=== PATIENT | female | born 1955 | race Caucasian/White ===

== ENCOUNTER 2025-01-13 14:36 | Emergency (ER) | payer MEDICARE, OTHER, SELFPAY ==
[2025-01-13 14:39] VITALS: BP 190/104
[2025-01-13 16:00] VITALS: BP 176/88
--- NOTE | 2025-01-13 16:04 | ED.GENMED ---
History of Present Illness
General
Chief Complaint: Blood Pressure Problem
Source: patient
Exam Limitations: none
Time Seen by Provider: 01/13/25 15:48
Nursing documentation reviewed up to this point in time: agreed with
History of Present Illness
History of Present Illness:
Patient with history of hypertension, presents to ED secondary to persistently elevated blood pressure over the past 2 weeks, including this afternoon when her blood pressure registered systolic blood pressure greater than 200. Patient denies
headache. Denies chest pain or shortness of breath. Denies nausea or vomiting. Denies dizziness. Patient has had multiple evaluation with her primary care physician, and has had medication adjusted. Despite changes, patient's blood pressure has
been persistently around systolic blood pressure 180s. Of note, patient has had flulike symptoms for the past 1 week, with intermittent cough, which are improving. Denies fever. Denies nausea, vomiting, or diarrhea. There are multiple for
members who has had recent flulike symptoms. In addition, patient has been using decongestants as an outpatient.
Review of Systems
Review of Systems
Allergies reviewed?: Yes
All Other Systems: ROS reviewed and negative except as documented in HPI and ROS
Constitutional: Reports no symptoms; Denies fever or chills
EENT: Reports no symptoms
Respiratory: Reports cough
Cardiac: Reports no symptoms; Denies chest pain
ABD/GI: Reports no symptoms; Denies vomiting or diarrhea
Musculoskeletal: Reports no symptoms
Skin: Reports no symptoms
Neurological: Reports no symptoms
Phy Exam
Physical Exam
Physical Exam:
Physical Exam
General: no apparent distress, not acutely ill. afebrile.
Head: nc/at. eomi
Neck: supple. normal range of motion.
Heart: s1/s2 regular rate and rhythm, no murmur.
Lungs: no acute respiratory distress. clear bilaterally
Abdomen: normal bowel sounds. not tender.
Neuro: alert and oriented x 3. no focal neurological deficits
Skin: no rash
Psychiatric: well kept. interactive and cooperative
Extremities: no edema. no calf tenderness.
Course
Orders/Labs/Results
Orders:
Orders
01/13/25 14:41
EKG [Electrocardiogram (*1)] Urgent
Reason for Study: Hypertension, Benign
01/13/25 14:42
EKG- Treatment ONCE
Vital Signs
Initial and Last Documented VS:
Initial Vital Signs
Temp Pulse Resp BP Pulse Ox
98.4 F 65 18 190/104 99
01/13/25 14:39 01/13/25 14:39 01/13/25 14:39 01/13/25 14:39 01/13/25 14:39
Last Documented Vital Signs
Temp Pulse Resp BP Pulse Ox
98.4 F 59 16 176/88 97
01/13/25 14:39 01/13/25 15:53 01/13/25 16:00 01/13/25 16:00 01/13/25 16:05
MDM/Problems Addressed
MDM/Problems Addressed:
BP: 176/88 at time of discharge. Patient will follow-up with her primary care physician for reevaluation, including potential medication adjustment as an outpatient. Patient will be provided with prescription for Robitussin with codeine secondary
to persistent cough.
*Critical Care Note
Total Time (30-74mins, 75-104mins- exclusive of procedures): Not Applicable
ED Attending Note
-
Portions of this chart may have been created with voice recognition software.� Occasional wrong word or��sound alike� substitutions may have occurred due to the inherent limitations of voice recognition software.
Discharge Plan
Departure
Patient Disposition: Home (Routine Discharge)
Date of Disposition: 01/13/25
Time of Disposition: 16:25
Patient with high blood pressure during this ER visit?: Yes
Condition: Good
Discharge Problem:
Viral illness, Hypertension
Instructions: High Blood Pressure (DC), Upper respiratory infection in adults - Discharge instructions
Prescriptions:
New
codeine-guaifenesin [Guaifenesin AC] 10-100 mg/5 mL liquid
5 ml PO Q8HPRN PRN (Reason: Cough) Qty: 120 0RF
No Action
atorvastatin [Lipitor] 20 MG tablet
20 mg PO DAILY
nadolol 20 MG tablet
20 mg PO DAILY
sertraline 25 MG tablet
25 mg PO DAILY
folic acid 1 MG tablet
1 mg PO DAILY
doxycycline monohydrate [Oracea] 40 MG capsule,IR - delay rel,biphase
40 mg PO DAILY
cholecalciferol (vitamin D3) [Vitamin D3] 2,000 UNIT capsule
2,000 unit PO DAILY
Extra Strength Hair And Nails
5,000 mcg PO DAILY
methotrexate sodium 2.5 MG tablet
7.5 mg PO .EVERY TUESDAY
gabapentin 300 MG capsule
300 mg PO TID
zolpidem 10 MG tablet
10 mg PO HSPRN PRN (Reason: sleep)
lidocaine 1 PATCH adhesive patch,medicated
1 patch topical DAILY
Patient Comments:
up to 3 patches daily
hydrocodone-acetaminophen [[place]] 1 EACH tablet
1 ea PO Q6HPRN PRN (Reason: pain) Qty: 40 0RF
Rx Instructions:
Take 1 tablet four times a day, every 6 hours for pain
lorazepam 1 MG tablet
1 mg PO TIDPRN PRN (Reason: pain/spasms) Qty: 40 0RF
Referrals:
Jb Morataya MD [Family Provider] -
Activity Restrictions/Additional Instructions:
As discussed, please follow-up with your primary care physician for reevaluation. Your prescription has been sent electronically to [facility] pharmacy in [place]
Interventions
Interventions:
*Risk Screen - Suicide Last Done: 01/13/25 14:39
*General Assessment Last Done: 01/13/25 14:39
*Neglect/Abuse Screening Last Done: 01/13/25 16:09
*ED- Fall Risk Assessment Last Done: 01/13/25 16:20
*ED COVID-19 Vaccine History Last Done: 01/13/25 14:39
*Nursing Disposition Last Done: 01/13/25 16:20
ED- Cardiac Assessment Last Done: 01/13/25 16:05
ED- Neurological Assessment Last Done: 01/13/25 16:05
ED- Pulmonary Assessment Last Done: 01/13/25 16:05
Discharge Date and Time
Discharge Date/Time: 01/13/25 16:25
Print Language: [id number]
== END 2025-01-13 16:25 | disposition home or self-care (01) ==
LOC: EMR 14:36
PROVIDERS: EMERGENCY PHYSICIAN Emergency Medicine; FAMILY PHYSICIAN Internal Medicine
DX: B34.9 Viral infection, unspecified (principal); I10 Essential (primary) hypertension
CPT/HCPCS: 99283; 93005